=== PATIENT | female | born 1950 | race Hispanic/Latino ===

== ENCOUNTER 2024-06-07 09:41 | Emergency (ER) | payer MEDICARE ==
[~2024-06-07] VITALS: Ht 157.5 cm; Wt 80.7 kg
[2024-06-07 09:42] VITALS: PULSE 71; RESP 18; TEMP 97.6; O2SAT 96
== END 2024-06-07 14:41 | disposition home or self-care (01) ==
LOC: ER 09:44
DX: M25.562 Pain in left knee (principal); I10 Essential (primary) hypertension; E78.5 Hyperlipidemia, unspecified; F32.A Depression, unspecified
CPT/HCPCS: 93971; 99283